=== PATIENT | female | born 1960 | race Caucasian/White ===

== ENCOUNTER → 2019-09-25 | Outpatient (CLI) | payer BC ==
[~2019-09-25] MED LIST: AMOX-358 PO; ASPI-999 PO; CEPH500C PO; CETI10TA17 PO; CHOL5000 PO; CODE118S4 PO; DICLOFENAC TOP; ESCI5TAB12 PO; FLUT9.9S NSEACH; HYDR-3455 PO; LACT1CAP65 PO; LORA-405 PO; LORA1TAB PO; NF-ESOM40C PO; POTA-51 PO; POTA10TA PO; PRAV20TA3 PO; RANI-613 PO; SUCR1TAB; TRIA1CAP4 PO
--- NOTE | 2019-09-25 09:17 | Diagnostic Imaging Report ---
INDICATION: Right hip pain. COMPARISON: None. FINDINGS: Two views of the right hip were obtained and show no fractures, dislocations, or other acute bony abnormalities. Moderate osteoarthritic changes are noted. Otherwise, joint spaces are maintained. The soft tissues appear unremarkable. No radiopaque foreign bodies are identified. IMPRESSION: 1. Moderate osteoarthritic changes of the right hip. 2. No evidence of acute fracture or dislocation. Dictated by: Dictated on workstation # [id number]
--- NOTE | 2019-09-25 09:21 | Diagnostic Imaging Report ---
INDICATION: Lower back pain. COMPARISON: None. FINDINGS: Frontal and lateral radiographic views of the lumbar spine were obtained. There is slight levoscoliotic deformity epicentered at L2. There is also slight grade 1 retrolisthesis at L2-L3 and L3-L4. There is no evidence of jumped facets. Vertebral body heights are maintained. There is no evidence of acute fracture. Moderate multilevel degenerative changes are noted and consistent with intervertebral disc height loss with sclerotic endplate change, disc osteophyte complex formation, and multilevel facet arthropathy. These changes appear greatest at L2-L3. IMPRESSION: 1. No acute fracture or dislocation in the lumbar spine. 2. Moderate multilevel degenerative changes. Dictated by: Dictated on workstation # [id number]
== END ==
LOC: RAD 08:27
PROVIDERS: ATTEND Nurse Practitioner Family
DX: M16.11 Unilateral primary osteoarthritis, right hip (principal); M47.816 Spondylosis without myelopathy or radiculopathy, lumbar region
CPT/HCPCS: 72100; 73502

== ENCOUNTER → 2020-03-22 | Outpatient (CLI) | payer BC ==
--- NOTE | 2020-03-22 10:07 | Diagnostic Imaging Report ---
PROCEDURE: MRI lumbar spine. TECHNIQUE: Multiplanar, multisequence MRI of the lumbar spine was performed without contrast. INDICATION: Chronic low back pain. No prior MRI studies are available for comparison. FINDINGS: Curvature and alignment of the lumbar spine is normal. Vertebral body heights are maintained. No geographic marrow lesion is seen apart from benign angiolipoma within the T12 vertebral body. There is generalized degenerative disc disease with variable disc space narrowing and desiccation, greatest at L1-L2 and L2-L3 levels. The conus is unremarkable at the L1 level. T12-L1: Central canal and neural foramina are widely patent. L1-L2: Mild endplate disc/osteophyte complex is noted but central canal remains widely patent. There is some narrowing of the lateral recesses bilaterally. There is also moderate right neural foraminal stenosis. L2-L3: Central canal is widely patent. There does appear to be moderate bilateral neural foraminal narrowing. L3-L4: Central canal is widely patent. There is [id number] narrowing of the left neural foramen and left lateral recess. L4-L5: Degenerative facet changes are noted with ligamentous thickening. Very mild trefoil configuration of the thecal sac is noted but AP dimensions remain within normal limits. Mild left neural foraminal narrowing is seen. L5-S1: Hypertrophic facet changes are noted. Central canal is widely patent. Neural foramina are patent. Paraspinous tissues are unremarkable. IMPRESSION: Multilevel lumbar spondylosis with multilevel lateral recess and neural foraminal narrowing described level by level above. No central canal stenosis or evidence of acute compression fracture is detected. Dictated by: Dictated on workstation # [id number]
== END ==
LOC: RAD 08:59
PROVIDERS: ATTEND Orthopaedic Surgery
DX: M47.816 Spondylosis without myelopathy or radiculopathy, lumbar region (principal); M48.061 Spinal stenosis, lumbar region without neurogenic claudication
CPT/HCPCS: 72148

== ENCOUNTER → 2020-11-07 | Outpatient (CLI) | payer BC ==
[~2020-11-07] MED LIST changes: -ESCI5TAB12 PO; +ESCI5TAB25 PO
--- NOTE | 2020-11-07 14:32 | Diagnostic Imaging Report ---
INDICATION: Routine screening. Comparison is made to prior mammogram 11/23/2019. 2-D and 3-D bilateral screening mammography was performed with CAD. Both breasts are heterogeneously dense, limiting the sensitivity of mammography. There are benign calcifications scattered throughout both breasts. There is a density in the medial right breast best seen on the CC view mid to posterior depth. Additional views recommended. No definite correlate is identified on the MLO view. Left breast is unremarkable. Axillae are unremarkable. IMPRESSION: BI-RADS 0 Right breast density. Additional views are recommended for further evaluation. ACR BI-RADS Category 0: Incomplete. (Needs additional imaging evaluation). Result letter will be mailed to the patient. Note: At least 10% of breast cancer is not imaged by mammography. Dictated by: Dictated on workstation # [id number]
== END ==
LOC: RAD 10:57
PROVIDERS: ATTEND Obstetrics & Gynecology
DX: Z12.31 Encounter for screening mammogram for malignant neoplasm of breast (principal); R92.8 Other abnormal and inconclusive findings on diagnostic imaging of breast
CPT/HCPCS: 77063; 77067

== ENCOUNTER → 2020-11-15 | Outpatient (CLI) | payer BC ==
--- NOTE | 2020-11-15 14:20 | Diagnostic Imaging Report ---
INDICATION: Right breast density. Patient presents for additional views. CORRELATION is made with screening study from 11/07/2020. Unilateral right 2-D and 3-D diagnostic mammography was performed. This included spot compression CC, rolled CC and 90 degree lateral views. There is a persistent nodular density in the medial right breast approximately 8 cm from the nipple. This is difficult to identify with clarity on the lateral view. Additional views with ultrasound are recommended. There are benign calcifications. IMPRESSION: BI-RADS 0 Persistent nodular density medial right breast 8 cm from the nipple. Further evaluation with ultrasound is recommended and will be performed today. ACR BI-RADS Category 0: Incomplete. (Needs additional imaging evaluation). Result letter will be mailed to the patient. Note: At least 10% of breast cancer is not imaged by mammography. Dictated by: Dictated on workstation # [id number]
--- NOTE | 2020-11-15 14:27 | Diagnostic Imaging Report ---
INDICATION: Right breast density. Correlation made with diagnostic mammogram earlier the same day as well as screening mammogram from 10/30/2020. Sonographic interrogation in the right breast was performed. There is a tiny simple appearing cyst at 2 o'clock location, 8 cm from the nipple measuring 4 mm x 3 mm. Likely accounts for the mammographic density. No internal vascularity is present. No solid masses are identified. IMPRESSION: BI-RADS Category 2 1. Tiny simple cyst 2 o'clock location right breast, 8 cm from the nipple. This likely accounts for the mammographic density. Patient may return to routine annual screening mammography. ACR BI-RADS Category 2: Benign findings. Result letter will be mailed to the patient. Note: At least 10% of breast cancer is not imaged by mammography. Dictated by: Dictated on workstation # [id number]
== END ==
LOC: RAD 13:45
PROVIDERS: ATTEND Obstetrics & Gynecology
DX: R92.2 Inconclusive mammogram (principal)
CPT/HCPCS: 76642; 77065; G0279

== ENCOUNTER → 2021-04-02 | Outpatient (CLI) | payer BC ==
[~2021-04-02] VITALS: Ht 172.7 cm; Wt 83.0 kg
[~2021-04-02] MED LIST changes: +DOCU-143 PO; +ESCI5TAB16 PO; -ESCI5TAB25 PO; +KRIL1CAP22 PO; +MULT-1136 PO
== END | disposition home or self-care (01) ==
LOC: PREOP 05:40
PROVIDERS: ATTEND Surgery
DX: Z01.818 Encounter for other preprocedural examination (principal)

== ENCOUNTER 2021-04-09 08:52 | Day surgery (SDC) | payer BC ==
[2021-04-09] VITALS (7 sets, daily range): BP systolic 100–118; BP diastolic 61–78
[~2021-04-09] VITALS: Ht 173 cm; Wt 83.0 kg
[2021-04-09] MEDS ORDERED: LACTATED RINGERS 1,000 ML IV ONE (09:05)
[2021-04-09] MEDS ORDERED: LACTATED RINGERS 1,000 ML IV STA (09:07)
[2021-04-09] MEDS ORDERED: LIDOCAINE JELLY 2% 6 ML SYRINGE MM PRN (09:15)
[2021-04-09] MEDS ORDERED: MIDAZOLAM 2 MG/2 ML (VERSED) VIAL ONE (09:56)
[2021-04-09] MEDS ORDERED: proPOfol 200 MG/20 ML (DIPRIVAN) VIAL IV ONE (09:56)
--- NOTE | 2021-04-09 10:01 | Progress Note-Pre Operative ---
Pre-Operative Progress Note H&P Reviewed The H&P was reviewed, patient examined and no changes noted. Date Seen by Provider: Apr 09, 2021 Time Seen by Provider: : Date H&P Reviewed: Apr 09, 2021 Time H&P Reviewed: : Pre-Operative Diagnosis: screening JOSE Santos MD Apr 09, 2021 10:01
--- NOTE | 2021-04-09 10:02 | Discharge Inst-Surgical ---
D/C Lap Instructions-[place] Follow Up High Fiber Diet 25g or more per day Avoid Alcohol, Caffeine, Spicy [place] and Acid foods. Drink 64 fluid oz or more of fluids per day. Symptoms to Report: Fever over 101 degree F, Nausea/Vomiting If any problems/questions: Contact your physician or go to Emergency Room JOSE ARNOLD MD Apr 09, 2021 10:02
[2021-04-09] MEDS ORDERED: ACETAMINOPHEN 325 MG TABLET PO PRN (10:15)
[2021-04-09] MEDS ORDERED: morphine INJ 10 MG/ML 1ML (SYR OR VIAL) IVP PRN ×2 (10:15)
[2021-04-09] MEDS ORDERED: ONDANSETRON 4 MG/2 ML (SDV) Z0FRAN IVP PRN (10:15)
[2021-04-09] MEDS ORDERED: HYDROcodone/APAP 5 MG/325 MG (LORTAB) TAB PO PRN (10:15)
--- NOTE | 2021-04-09 10:53 | Progress Note-Post Operative ---
Post-Operative Progess Note Surgeon (s)/Cloth Mercerizer Back Tender (s) Surgeon JOSE ARNOLD MD Cloth Mercerizer Back Tender: none Pre-Operative Diagnosis screening colo Post-Operative Diagnosis mild chronic stage 2 ext and int hemorrhoids, mild sigmoid diverticulosis, mild colitis hepatic flexure. Procedure & Operative Findings Date of Procedure 04/09/21 Procedure Performed/Findings colonoscopy with bx. Anesthesia Type mac Estimated Blood Loss Estimated blood loss (mL): minimal Specimens/Packing Specimens Removed hepatic flex JOSE ARNOLD MD Apr 09, 2021 10:53
--- NOTE | 2021-04-09 14:40 | Anesthesia-General Post-Op ---
MAC Patient Condition Mental Status/LOC: Same as Preop Cardiovascular: Satisfactory Nausea/Vomiting: Absent Respiratory: Satisfactory Pain: Controlled Complications: Absent Post Op Complications Complications None Follow Up Care/Instructions Patient Instructions None needed. Anesthesiology Discharge Order Discharge Order Patient is doing well, no complaints, stable vital signs, no apparent adverse anesthesia problems. No complications reported per nursing. JAZZ RANKIN CRNA Apr 09, 2021 14:40
--- NOTE | 2021-04-09 14:45 | OPERATIVE REPORT ---
DATE OF SERVICE: 04/09/2021 ATTENDING PRIMARY CARE PHYSICIAN: Andreea Dixon MD PREOPERATIVE DIAGNOSIS: Screening colonoscopy. POSTOPERATIVE DIAGNOSES: Mild chronic stage II external and internal hemorrhoids, mild sigmoid diverticulosis, mild colitis at the hepatic flexure. PROCEDURE: Colonoscopy with biopsy. SURGEON: Jose Arnold MD. ANESTHESIA: Monitored anesthesia care. ESTIMATED BLOOD LOSS: Minimal. FINDINGS: Mild chronic stage II external and internal hemorrhoids, mild sigmoid diverticulosis, mild colitis at the hepatic flexure. DISPOSITION: The patient tolerated the procedure well. INDICATIONS: The patient is a 60-year-old female in need of a screening colonoscopy. Her last colonoscopy was approximately 10 years ago and she states this to be normal. She reports no major issues with diarrhea nor constipation as well as no red blood per rectum nor any dark tarry stools. She also doed not report any family history of colon cancer. DESCRIPTION OF PROCEDURE: The patient was brought to the endoscopy suite, laid in the left lateral decubitus position. After adequate IV pain and sedative medications and monitored anesthesia care, digital rectal examination was performed. Mild chronic stage II external and internal hemorrhoids were identified, which were not actively edematous nor inflamed and no bleeding. Normal sphincter tone was felt and there were no palpable masses. The endoscope was then intubated and anus and rectum gently insufflated. The endoscope was then advanced through the valves of Urias of the rectum with no polyps or any neoplasms identified. Through the sigmoid colon, very mild diverticulosis was identified. There were no mucosal inflammatory changes to indicate any diverticulitis. The endoscope was then advanced to the remainder of the descending, transverse and ascending colon at the hepatic flexure, a small patch of inflammation was identified of the mucosa. A biopsy was taken of this area with forceps with visualization of good hemostasis. The endoscope was then advanced to the remainder of the ascending colon to the cecum, which was normal. The endoscope was then slowly withdrawn while taking a second look and suctioning of residual air with no additional findings. The patient tolerated the procedure well. We will recommend continued medical management with a high fiber diet with at least 25 grams of fiber daily as well as significant amounts of water to promote soft stools on a daily basis. If she remains asymptomatic, she does not need another colonoscopy for another 10 years. Job ID: [id number] DocumentID: [id number] Dictated Date: 04/09/2021 10:42:47 Rn Transport Date: 04/09/2021 14:45:12 Dictated By: JOSE ARNOLD MD MTDD
== END 2021-04-09 11:14 | disposition home or self-care (01) ==
LOC: ENDO 08:52
PROVIDERS: ATTEND Surgery
DX: Z12.11 Encounter for screening for malignant neoplasm of colon (principal); K64.1 Second degree hemorrhoids; K57.30 Diverticulosis of large intestine without perforation or abscess without bleeding; K52.9 Noninfective gastroenteritis and colitis, unspecified; K63.89 Other specified diseases of intestine; I10 Essential (primary) hypertension; E78.5 Hyperlipidemia, unspecified; Z79.899 Other long term (current) drug therapy

== ENCOUNTER → 2021-06-09 | Outpatient (CLI) | payer BC | LOC: LABNPT 06:53 | PROVIDERS: ATTEND Orthopaedic Surgery | DX: Z01.812 Encounter for preprocedural laboratory examination (principal); Z20.822 Contact with and (suspected) exposure to COVID-19 | CPT/HCPCS: 87635 ==

== ENCOUNTER → 2021-11-10 | Outpatient (CLI) | payer BC ==
--- NOTE | 2021-11-10 12:54 | Diagnostic Imaging Report ---
INDICATION: Routine screening. COMPARISON: 11/07/2020 and 11/23/2019. TECHNIQUE: 2D and 3D bilateral screening mammography was performed with CAD. FINDINGS: Both breasts are heterogeneously dense, limiting the sensitivity of mammography. The previously noted density in the medial right breast appears stable. There are scattered benign-appearing calcifications in both breasts. No new mass or malignant-appearing microcalcifications are seen. The axillae are unremarkable. IMPRESSION: No mammographic features suspicious for malignancy are identified. ACR BI-RADS Category 2: Benign findings. Result letter will be mailed to the patient. Note: At least 10% of breast cancer is not imaged by mammography. Dictated by: Dictated on workstation # [id number]
== END ==
LOC: RAD 08:42
PROVIDERS: ATTEND Nurse Practitioner Family
DX: Z12.31 Encounter for screening mammogram for malignant neoplasm of breast (principal)
CPT/HCPCS: 77063; 77067

== ENCOUNTER → 2022-07-02 | Outpatient (CLI) | payer BC ==
[~2022-07-02] MED LIST changes: -TRIA1CAP4 PO; +TRIA1CAP84 PO
--- NOTE | 2022-07-02 12:04 | Diagnostic Imaging Report ---
PROCEDURE: US Non-ob pelvis comp/trans. TECHNIQUE: Multiple realtime grayscale images were obtained of the pelvis in various projections endovaginally. Transabdominal imaging was also performed. INDICATION: Postmenopausal bleeding with vaginal discharge. FINDINGS: The uterus measures 7 x 4 x 4.2 cm. There is a hypoechoic area in the fundus of the uterus measuring 2.3 cm. The endometrial stripe measures 2 mm. There is a small amount of fluid in the endometrial canal. Right ovary is not visualized. No adnexal masses are seen. The left ovary measures 3.8 x 2.2 x 3.1 cm. There are multiple cysts, largest measuring 3.8 cm. There is no free fluid. IMPRESSION: 1. Myometrial fundal mass, likely representing fibroid, measuring 2.3 cm. 2. Small amount of fluid in the endometrial canal without evidence of endometrial hypertrophy or masses. 3. Cyst noted in the left ovary measuring approximately 3.8 cm. Right ovary is obscured by bowel gas. Dictated by: Dictated on workstation # [id number]
== END ==
LOC: RAD 10:08
PROVIDERS: ATTEND Nurse Practitioner Family
DX: N83.202 Unspecified ovarian cyst, left side (principal); N85.8 Other specified noninflammatory disorders of uterus
CPT/HCPCS: 76830; 76856

== ENCOUNTER 2022-09-10 05:36 | Outpatient (CLI) | payer BC ==
[~2022-09-10] VITALS: Ht 172.7 cm; Wt 83.0 kg
== END 2022-09-10 15:50 | disposition home or self-care (01) ==
LOC: PREOP 05:36
PROVIDERS: ATTEND Obstetrics & Gynecology
DX: Z01.818 Encounter for other preprocedural examination (principal)

== ENCOUNTER 2022-09-14 08:59 | Day surgery (SDC) | payer BC ==
[~2022-09-14] VITALS: Ht 172.7 cm; Wt 83.0 kg
[2022-09-14] VITALS (9 sets, daily range): BP systolic 109–134; BP diastolic 70–94
[2022-09-14] MEDS ORDERED: LACTATED RINGERS 1,000 ML IV PRN (09:30)
[2022-09-14 09:33] LABS: BASOPHILS % (AUTO) 1 % (0-10); EOSINOPHILS # (AUTO) 0.1 10^3/uL (0.0-0.3); EOSINOPHILS % (AUTO) 1 % (0-10); HEMATOCRIT 42 % (35-52); HEMOGLOBIN 14.2 g/dL (11.5-16.0); LYMPHOCYTES # (AUTO) 1.6 10^3/uL (1.0-4.0); LYMPHOCYTES % (AUTO) 29 % (12-44); MEAN CORPUSCULAR HEMOGLOBIN 30 pg (25-34); MEAN CORPUSCULAR HGB CONC 34 g/dL (32-36); MEAN CORPUSCULAR VOLUME 89 fL (80-99); MONOCYTES # (AUTO) 0.4 10^3/uL (0.0-1.0); MONOCYTES % (AUTO) 7 % (0-12); NEUTROPHILS # (AUTO) 3.5 10^3/uL (1.8-7.8); NEUTROPHILS % (AUTO) 62 % (42-75); PLATELET COUNT 227 10^3/uL (130-400); WHITE BLOOD COUNT 5.6 10^3/uL (4.3-11.0)
[2022-09-14] MEDS ORDERED: BUPIVACAINE 0.25% 30 ML (SENSORCAINE) VIAL ONE (09:38)
--- NOTE | 2022-09-14 09:41 | Progress Note-Pre Operative ---
Pre-Operative Progress Note Date of Available H&P: Sep 14, 2022 Date H&P Reviewed: Sep 14, 2022 Time H&P Reviewed: 09:40 History & Physical: H&P Reviewed, Patient Examed, No changes noted Pre-Operative Diagnosis: PMB, Fibroid uterus KATRIN LORD DO Sep 14, 2022 09:41
[2022-09-14] MEDS ORDERED: ONDANSETRON 4 MG/2 ML (SDV) Z0FRAN IVP PRN ×2 (09:45→11:15)
[2022-09-14] MEDS ORDERED: KETOROLAC 30 MG/ML VIAL IVP ONE (09:45)
[2022-09-14] MEDS ORDERED: D5 LR IV SOLUTION 1,000 ML IV SCH (09:45)
[2022-09-14] MEDS ORDERED: SEVOFLURANE (ULTANE) 15 ML INHAL SOLN ONE (10:23)
[2022-09-14] MEDS ORDERED: LIDOCAINE PF 2% 5 ML (XYLOCAINE) VIAL ONE (10:23)
[2022-09-14] MEDS ORDERED: proPOfol 200 MG/20 ML (DIPRIVAN) VIAL IV ONE (10:23)
[2022-09-14] MEDS ORDERED: fentaNYL INJ 100 MCG/2 ML AMP ONE (10:23)
[2022-09-14] MEDS ORDERED: ONDANSETRON 4 MG/2 ML (SDV) Z0FRAN ONE (10:23)
[2022-09-14] MEDS ORDERED: MIDAZOLAM 2 MG/2 ML (VERSED) VIAL ONE (10:24)
[2022-09-14] MEDS ORDERED: KETOROLAC 30 MG/ML VIAL ONE (11:00)
[2022-09-14] MEDS ORDERED: HYDROmorphone 2 MG/ML VIAL (DILAUDID) IV ONE (11:15)
--- NOTE | 2022-09-14 11:19 | Anesthesia-General Post-Op ---
General Patient Condition Mental Status/LOC: Same as Preop Cardiovascular: Satisfactory Nausea/Vomiting: Absent Respiratory: Satisfactory Pain: Controlled Complications: Absent Post Op Complications Complications None Follow Up Care/Instructions Patient Instructions None needed. Anesthesia/Patient Condition Patient Condition Patient is doing well, no complaints, stable vital signs, no apparent adverse anesthesia problems. No complications reported per nursing. D/C home per [facility] Criteria: Yes FABIOLA DONALDSON CRNA Sep 14, 2022 11:18
--- NOTE | 2022-09-14 21:09 | OPERATIVE REPORT ---
DATE OF SERVICE: 09/14/2022 PREOPERATIVE DIAGNOSIS: A 62-year-old female with postmenopausal bleeding. POSTOPERATIVE DIAGNOSIS: A 62-year-old female with postmenopausal bleeding. PROCEDURE: D and C with video hysteroscopy. SURGEON: Katrin Lord DO. ANESTHESIA: LMA general. ESTIMATED BLOOD LOSS: Minimal. URINE OUTPUT: 100 mL drained at the end of the procedure. FLUIDS: 800 mL lactated Ringer's solution. FINDINGS: Grossly normal-appearing external female genitalia. Grossly normal appearing cervical canal and endometrial cavity. SPECIMEN SENT: Endometrial curettings. INDICATIONS FOR PROCEDURE: This 62-year-old female is a patient in the psychiatric care in my office for a postmenopausal bleeding episode. She did not want to proceed with endometrial biopsy in the office. She continued to have some irregular spotting at times and wished to proceed with D and C after it was discussed with her versus an endometrial biopsy in the office. Risks of the procedure were discussed with the patient in detail including risk of bleeding, infection, damage to structures including but not limited to the uterus itself. After all of her questions were answered, consent was obtained in the preoperative area and the patient was taken to the operating room. REPORT IN DETAIL: Once in the operating room, anesthesia found to be adequate. She was placed in dorsal lithotomy position, prepped and draped in sterile fashion. Timeout was performed. A weighted speculum was inserted in the patient's vagina, right angle retractor was utilized. The cervix was grasped with clamps and using a long Allis clamp. We then performed paracervical block at 3 and 9 o'clock positions on the cervix. Care was taken to aspirate for injecting 5 mL of 0.25% Marcaine injected into each site. I then gently sounded the uterine cavity, was found to be 7 cm. I then gently dilated the cervix using Hanks dilators to allow placement of the hysteroscope into the endometrial cavity using normal saline as my visual medium. I am able to visualize the endometrial cavity, which appears to be grossly normal with no protrusions or abnormalities. Bilateral tubal ostia were noted as well and appear postmenopausal with some atrophy to the opening. The cervical canal appears grossly normal as well. At that point, I discontinued my hysteroscopic evaluation and proceed with curettage with a small endometrial curette. After further dilating the cervix to approximately 1 cm, I used the curette to gently collect an endometrial sample of the endometrial cavity. Once adequate sample was obtained, which is scant with tissue, I sent this as endometrial curettings. I then removed all the instruments from the patient's vagina. The patient tolerated the procedure well and was taken to the recovery area in stable condition. Lap and sponge counts were correct at the end of procedure, instrument counts were correct as well. Job ID: [id number] DocumentID: [id number] Dictated Date: 09/14/2022 11:35:25 Facilities Maintenance Supervisor Date: 09/14/2022 21:08:00 Dictated By: KATRIN LORD DO
== END 2022-09-14 12:50 | disposition home or self-care (01) ==
LOC: SDC 08:59
PROVIDERS: ATTEND Obstetrics & Gynecology
DX: N72 Inflammatory disease of cervix uteri (principal); N95.0 Postmenopausal bleeding; D25.9 Leiomyoma of uterus, unspecified
CPT/HCPCS: 36415; 85025; 86850; 86900; 86901; 87081

== ENCOUNTER → 2022-11-11 | Outpatient (CLI) | payer BC ==
--- NOTE | 2022-11-12 14:22 | Diagnostic Imaging Report ---
Indication: Routine screening. Comparison is made with prior mammogram from 11/10/2021 and 11/07/2020. 2-D and 3-D bilateral screening mammography was performed with CAD. CAD is utilized. The current study was also evaluated with a Computer Aided Detection (CAD) system. Both breasts are heterogeneously dense, limiting the sensitivity of mammography. There are benign calcifications scattered throughout both breasts. No dominant mass or malignant-appearing microcalcifications are seen. Axillae are unremarkable. IMPRESSION: BI-RADS Category 2 No mammographic features suspicious for malignancy are identified. ACR BI-RADS Category 2: Benign findings. Result letter will be mailed to the patient. Note: At least 10% of breast cancer is not imaged by mammography. Dictated by: Dictated on workstation # [id number]
== END ==
LOC: RAD 14:40
PROVIDERS: ATTEND Nurse Practitioner Family
DX: Z12.31 Encounter for screening mammogram for malignant neoplasm of breast (principal)
CPT/HCPCS: 77063; 77067

== ENCOUNTER → 2023-04-07 | Outpatient (CLI) | payer BC ==
[~2023-04-07] MED LIST changes: +POTA-330 PO; -POTA-51 PO
--- NOTE | 2023-04-07 09:13 | Diagnostic Imaging Report ---
PROCEDURE: CT chest without contrast. TECHNIQUE: Multiple contiguous axial images were obtained through the chest without the use of intravenous contrast. Auto Exposure Controls were utilized during the CT exam to meet ALARA standards for radiation dose reduction. INDICATION: Abnormal CT scan of the lungs. COMPARISON: None available FINDINGS: Calcified mediastinal lymph node is present. No pathologically enlarged lymph nodes within the chest. No aneurysmal dilatation of thoracic aorta. The heart is within normal limits in size. No pericardial effusion. No significant pleural effusion. Fat-containing diaphragmatic hernia noted posteriorly on the right. The trachea is patent. No pneumothorax. Minimal bibasilar scarring and/or atelectasis. Cholelithiasis. Hypodensity within the dome of the right hepatic lobe, likely related to a cyst. Only seen on the final few images of the axial images, there is potentially a 1.6 cm soft tissue mass associated with the tail of the pancreas. Scattered osseous degenerative changes without acute osseous abnormality. IMPRESSION: Only partially visualized on the axial images, there is suggestion of a potential 1.6 cm soft tissue mass within the tail of the pancreas. Recommend a CT of the abdomen with contrast for further evaluation. Alternatively, if prior imaging is available for comparison that would be beneficial. Cholelithiasis. Evidence of chronic granulomatous disease without acute abnormality within the chest. Dictated by: Dictated on workstation # [id number]
== END ==
LOC: RAD 08:23
PROVIDERS: ATTEND Family Medicine
DX: R91.8 Other nonspecific abnormal finding of lung field (principal); K80.20 Calculus of gallbladder without cholecystitis without obstruction; D71 Functional disorders of polymorphonuclear neutrophils; K86.9 Disease of pancreas, unspecified
CPT/HCPCS: 71250

== ENCOUNTER → 2023-04-23 | Outpatient (CLI) | payer BC ==
[~2023-04-23] MED LIST changes: +CATHETER FLUSH 10 ML SYR IV PRN; +HOLD METFORMIN - RECEIVED CONTRAST 20 ML VIAL IV SCH; +IOHEXOL 350 MG/ML 100 ML (OMNIPAQUE 350) VIAL IV ONE; +NS 100 ML (IVPB) BAG IV ONE; +POTA-185 PO; -POTA10TA PO
[2023-04-23 09:55] LABS: CREATININE SERUM 0.93 MG/DL (0.60-1.30)
--- NOTE | 2023-04-23 11:16 | Diagnostic Imaging Report ---
EXAMINATION: CT abdomen and pelvis with intravenous contrast. TECHNIQUE: Multiple contiguous axial images were obtained through the abdomen and pelvis after the uneventful administration of intravenous contrast. All CT scans use one or more of the following dose optimizing techniques: automated exposure control, MA and/or KvP adjustment based on patient size and exam type or iterative reconstruction. HISTORY: Pancreatic mass. COMPARISON: None available. FINDINGS: Limited views of the lower thorax show bibasilar atelectasis. There is a cyst in the dome of the liver. No suspicious liver lesion. There is no biliary ductal dilation. There are a few tiny stones in the gallbladder. No wall thickening or pericholecystic fluid. There is fatty atrophy of the pancreas. No pancreatic mass is seen. No pancreatic ductal dilation. There are a few islands of residual normal glandular tissue. There is a fat-containing Bochdalek hernia on the right. Spleen is normal. Adrenal glands are normal. The kidneys are normal. There is no hydronephrosis. Urinary bladder is normal. There is a 3.2 x 2.3 cm left adnexal lesion which is partially obscured by streak artifact. Bowel is normal in caliber without obstruction or inflammation. No free fluid or air. No abdominal or pelvic lymphadenopathy. Aorta is normal in caliber without aneurysm. There are no suspicious osseus lesions. There are bilateral hip arthroplasties. IMPRESSION: 1. Fatty atrophy of the pancreas with a few islands of residual glandular tissue but no suspicious lesions. 2. Indeterminate left adnexal lesion. Pelvic sonogram recommended. Dictated by: Dictated on workstation # [id number]
== END ==
LOC: RAD 09:14
PROVIDERS: ATTEND Family Medicine
DX: K86.89 Other specified diseases of pancreas (principal)
CPT/HCPCS: 36415; 74177; 82565; 84520

== ENCOUNTER → 2023-05-07 | Outpatient (CLI) | payer BC ==
[~2023-05-07] MED LIST changes: -CATHETER FLUSH 10 ML SYR IV PRN; -HOLD METFORMIN - RECEIVED CONTRAST 20 ML VIAL IV SCH; -IOHEXOL 350 MG/ML 100 ML (OMNIPAQUE 350) VIAL IV ONE; -NS 100 ML (IVPB) BAG IV ONE
--- NOTE | 2023-05-07 16:57 | Diagnostic Imaging Report ---
PROCEDURE: Pelvic complete, transabdominal and transvaginal sonogram. Limited pelvic doppler. TECHNIQUE: Multiple real-time grayscale images were obtained of the pelvis in various projections transabdominally and transvaginally. Limited pelvic duplex images were obtained. HISTORY: Left adnexal mass COMPARISON: 04/23/2023 FINDINGS: Uterus: The uterus is anteverted and measures 6.9 x 3.0 x 4.1 cm. There is an intramural or subserosal uterine fibroid measuring up to 1.8 cm. Endometrium: The endometrium is normal in thickness and measures 0.1 cm. There is no fluid within the endometrial cavity. Adnexa: There is a multilocular anechoic cyst with some internal debris within the left ovary measuring up to 3.2 cm. The right ovary is unremarkable. The right ovary measures 1.5 x 0.6 x 1.0 cm and the left ovary measures 3.2 x 2.9 x 4.2 cm. Duplex images reveal normal vascular flow to both ovaries. Other: There is no free fluid within the pelvis. IMPRESSION: 1. A 3.2 cm mildly complex left adnexal cystic lesion. This could represent a hemorrhagic cyst. Consider ultrasound followup in 6-12 weeks. 2. A 1.8 cm intramural or subserosal uterine fibroid. Dictated by: Dictated on workstation # [id number]
== END ==
LOC: RAD 14:52
PROVIDERS: ATTEND Nurse Practitioner
DX: N94.89 Other specified conditions associated with female genital organs and menstrual cycle (principal)
CPT/HCPCS: 76830; 76856

== ENCOUNTER → 2023-08-24 | Outpatient (CLI) | payer BC ==
[~2023-08-24] VITALS: Ht 172.7 cm; Wt 87.7 kg
[~2023-08-24] MED LIST changes: +ANTACID SUSPENSION 30 ML UDC PO PRN; +BENZOCAINE LOZENGES 1 EACH MM PRN; +DOCUSATE SODIUM 100 MG CAPSULE PO PRN; +HYDROcodone/ACETAMINOPHEN 7.5 MG/325 MG TABLET PO PRN; +IBUPROFEN 600 MG TABLET PO PRN; +KETOROLAC INJ 30 MG/ML VIAL IVP PRN; +LACTATED RINGERS 1,000 ML 1,000 ML IV SCH; +ONDANSETRON INJECTION 4 MG/2 ML (SDV) IV PRN; +SIMETHICONE 80 MG CHEWABLE TABLET PO PRN; +ZOLPIDEM 5 MG (AMBIEN) TAB PO PRN
--- NOTE | 2023-08-24 07:15 | Progress Note-Pre Operative ---
Pre-Operative Progress Note Date of Available H&P: Aug 24, 2023 Date H&P Reviewed: Aug 24, 2023 Time H&P Reviewed: 06:45 History & Physical: H&P Reviewed, Patient Examed, No changes noted Pre-Operative Diagnosis: Pelvic mass, Pelvic pain, AUB KATRIN LORD DO Aug 24, 2023 07:15
== END | disposition home or self-care (01) ==
LOC: PREOP 05:30
PROVIDERS: ATTEND Obstetrics & Gynecology
DX: Z01.818 Encounter for other preprocedural examination (principal)

== ENCOUNTER 2023-08-31 05:59 | Day surgery (SDC) | payer BC ==
[2023-08-31] VITALS (10 sets, daily range): BP systolic 104–136; BP diastolic 62–86
[~2023-08-31] VITALS: Ht 172.7 cm; Wt 87.7 kg
[~2023-08-31 05:59] MED LIST changes: -ANTACID SUSPENSION 30 ML UDC PO PRN; -BENZOCAINE LOZENGES 1 EACH MM PRN; -DOCUSATE SODIUM 100 MG CAPSULE PO PRN; -HYDROcodone/ACETAMINOPHEN 7.5 MG/325 MG TABLET PO PRN; -IBUPROFEN 600 MG TABLET PO PRN; -KETOROLAC INJ 30 MG/ML VIAL IVP PRN; -LACTATED RINGERS 1,000 ML 1,000 ML IV SCH; -ONDANSETRON INJECTION 4 MG/2 ML (SDV) IV PRN; -SIMETHICONE 80 MG CHEWABLE TABLET PO PRN; -ZOLPIDEM 5 MG (AMBIEN) TAB PO PRN
[2023-08-31] MEDS ORDERED: ceFAZolin INJECTION 2,000 MG in NS (IVPB) 50 ML 50 ML IV ONE (06:15)
[2023-08-31] MEDS ORDERED: metroNIDAZOLE 500MG/100ML IVPB 100 ML IV ONE (06:15)
[2023-08-31] MEDS ORDERED: UBID50TA3 PO (06:18)
[2023-08-31] MEDS ORDERED: BUPIVACAINE 0.25% 30 ML VIAL ONE (06:26)
[2023-08-31] MEDS: LACTATED RINGERS 1,000 ML 1,000 ML IV PRN ×3 (06:30→08:25)
[2023-08-31 06:54] LABS: BASOPHILS % (AUTO) 1 % (0-10); EOSINOPHILS # (AUTO) 0.1 10^3/uL (0.0-0.3); EOSINOPHILS % (AUTO) 2 % (0-10); HEMATOCRIT 39 % (35-52); HEMOGLOBIN 13.3 g/dL (11.5-16.0); LYMPHOCYTES # (AUTO) 1.8 10^3/uL (1.0-4.0); LYMPHOCYTES % (AUTO) 26 % (12-44); MEAN CORPUSCULAR HEMOGLOBIN 30 pg (25-34); MEAN CORPUSCULAR HGB CONC 34 g/dL (32-36); MEAN CORPUSCULAR VOLUME 90 fL (80-99); MEAN PLATELET VOLUME 10.4 fL (9.0-12.2); MONOCYTES # (AUTO) 0.6 10^3/uL (0.0-1.0); MONOCYTES % (AUTO) 8 % (0-12); NEUTROPHILS # (AUTO) 4.5 10^3/uL (1.8-7.8); NEUTROPHILS % (AUTO) 64 % (42-75); PLATELET COUNT 234 10^3/uL (130-400)
[2023-08-31] MEDS ORDERED: proPOfol INJECTION 200 MG/20 ML VIAL IV ONE (07:02)
[2023-08-31] MEDS ORDERED: fentaNYL INJECTION 100 MCG/2 ML VIAL ONE (07:02)
[2023-08-31] MEDS ORDERED: LIDOCAINE PF 2% 5 ML VIAL ONE (07:02)
[2023-08-31] MEDS ORDERED: ROCURONIUM 50 MG/5 ML VIAL IV ONE (07:02)
[2023-08-31] MEDS ORDERED: MIDAZOLAM INJ 2 MG/2 ML VIAL ONE (07:02)
--- NOTE | 2023-08-31 07:09 | Progress Note-Pre Operative ---
Pre-Operative Progress Note Date of Available H&P: Aug 31, 2023 Date H&P Reviewed: Aug 31, 2023 Time H&P Reviewed: 07:05 History & Physical: H&P Reviewed, Patient Examed, No changes noted Pre-Operative Diagnosis: CPP, Fibroid uterus, Adnexal mass KATRIN LORD DO Aug 31, 2023 07:09
--- NOTE | 2023-08-31 07:14 | Discharge Inst-Women's Service ---
Discharge Inst-Women's Serv Depart Medication/Instructions New, Converted or Re-Newed RX: Transmitted to Pharmacy Problems Reviewed?: Yes Consults/Follow Up Additional Follow Up: Yes Orders/Referrals Dr. Lord in 7-10 days and in 8 weeks Activity Activity: Activity as Tolerated Driving Instructions: No Driving for 1 Week NO SMOKING: NO SMOKING Nothing Inside Vagina: No Douching, No [place], No Tampons Diet Discharge Diet: No Restrictions Symptoms to Report to : Bleeding Excessive, Pain Increased, Fever Over 101 Degrees F, Vaginal Bleeding Increase, Questions/Concerns For Any Problems or Questions: Contact Your Physician KATRIN LORD DO Aug 31, 2023 07:14
[2023-08-31] MEDS ORDERED: ZOLPIDEM 5 MG (AMBIEN) TAB PO PRN (07:15)
[2023-08-31] MEDS ORDERED: DOCU100C37 PO (07:15)
[2023-08-31] MEDS ORDERED: HYDR-3817 PO (07:15)
[2023-08-31] MEDS ORDERED: LACTATED RINGERS 1,000 ML 1,000 ML IV SCH (07:15)
[2023-08-31] MEDS ORDERED: SIME80TA16 PO (07:15)
[2023-08-31] MEDS ORDERED: BENZOCAINE LOZENGES 1 EACH MM PRN (07:15)
[2023-08-31] MEDS ORDERED: IBUP-1773 PO (07:15)
[2023-08-31] MEDS ORDERED: ANTACID SUSPENSION 30 ML UDC PO PRN (07:15)
[2023-08-31] MEDS ORDERED: DOCUSATE SODIUM 100 MG CAPSULE PO PRN (07:15)
[2023-08-31] MEDS ORDERED: SIMETHICONE 80 MG CHEWABLE TABLET PO PRN (07:15)
[2023-08-31] MEDS ORDERED: ONDANSETRON INJECTION 4 MG/2 ML (SDV) IV PRN (07:15)
[2023-08-31] MEDS ORDERED: HYDROcodone/ACETAMINOPHEN 7.5 MG/325 MG TABLET PO PRN (07:15)
[2023-08-31] MEDS ORDERED: BUPIVACAINE 0.25% 30 ML VIAL INJ ONE (07:44)
[2023-08-31] MEDS ORDERED: NEOSTIGMINE 1 MG/1ML 10 ML VIAL ONE (08:16)
[2023-08-31] MEDS ORDERED: GLYCOPYRROLATE INJ 0.2 MG/ML 2 ML VIAL ONE (08:16)
[2023-08-31] MEDS ORDERED: HYDROmorphone INJECTION 2 MG/ML VIAL ONE (08:24)
[2023-08-31] MEDS ORDERED: SEVOFLURANE (ULTANE) 15 ML INHAL SOLN ONE (08:26)
[2023-08-31] MEDS ORDERED: HYDROmorphone INJECTION 2 MG/ML VIAL IV ONE (08:45)
[2023-08-31] MEDS ORDERED: ONDANSETRON INJECTION 4 MG/2 ML (SDV) IVP PRN (08:45)
[2023-08-31] MEDS ORDERED: KETOROLAC INJ 30 MG/ML VIAL ONE (08:56)
[2023-08-31] MEDS: KETOROLAC INJ 30 MG/ML VIAL IVP PRN ×2 (08:57→15:20)
--- NOTE | 2023-08-31 15:26 | OPERATIVE REPORT ---
DATE OF SERVICE: 08/31/2023 PREOPERATIVE DIAGNOSES: 1. A 63-year-old female with fibroid uterus. 2. Chronic pelvic pain. 3. Left ovarian complex cyst. POSTOPERATIVE DIAGNOSES: 1. A 63-year-old female with fibroid uterus. 2. Chronic pelvic pain. 3. Left ovarian complex cyst. PROCEDURE: Robotic-assisted total laparoscopic hysterectomy, bilateral salpingo-oophorectomy. SURGEON: Shayne Lord DO. SOCIAL SCIENCE INSTRUCTOR: Danette Trujillo DNP was necessary for manipulation and retraction throughout the procedure. ANESTHESIA: General endotracheal. ESTIMATED BLOOD LOSS: Minimal. URINE OUTPUT: 200 mL clear at the end of the procedure. FLUIDS: Two liters lactated Ringer's solution. FINDINGS: Slightly bulky and hyperemic appearing uterus. Bilateral normal-appearing fallopian tubes. Right normal-appearing ovary that is postmenopausal in appearance. Left ovary is multicystic appearing enlarged approximately 2-3 cm, otherwise no excrescences or abnormalities noted of the left ovary. SPECIMEN SENT: Uterus, bilateral fallopian tubes and ovaries. INDICATIONS FOR PROCEDURE: This 63-year-old female patient sought care in my office. She had been seen previously for finding of ovarian multicystic mass that was stable. She also had a known uterine fibroid. She did have chronic pelvic pain that seems to be getting more and more frequent. Due to this as well as the patient's concern with a strong family history of gynecologic malignancy, the patient wished to proceed with hysterectomy. Risks of the procedure were discussed with the patient in detail including risk of bleeding, infection, damage structures including but not limited to bowel, bladder, ureter, kidneys, possible need for reoperation, postoperative complications that may recur, recovery timeframe, risk from anesthesia and even . Everything was discussed with the patient in detail and she was agreeable to proceed. Consent was obtained. The patient was taken to the operating room. OPERATIVE DESCRIPTION IN DETAIL: Once in the operating room, anesthesia was administered. She was placed in the dorsal lithotomy position, prepped and draped in normal sterile fashion. A timeout was performed. A Moore catheter was placed using sterile technique. A weighted speculum inserted to the patient's vagina. Right angle retractor was used to visualize cervix, which was grasped at 12 o'clock position using an 0 Vicryl suture to the anterior lip of the cervix. Once the sutures through the anterior lip of the cervix using my retraction, I gently sound the uterine cavity depth was found to be 8 cm. I placed a RAEGAN uterine manipulator tip of 8 cm depth into the uterus deploying the balloon and the uterus and advanced 3.5 cm colpotomy ring around the vaginal fornix, after which bimanual manipulation is appreciated on examination using the Raegan device. I then removed all the other instruments from the patient's vagina, performed change of gloves and my attention to the abdomen where a subcostally at the midclavicular line on the left side and introduced the Veress needle through the incision until intraperitoneal placement was confirmed using a saline drop test and opening pressure of 5 mmHg was noted. I proceeded with CO2 insufflation to maximum pressure of 15 mmHg, at which point I make an 8 mm infraumbilical incision with a knife and direct a da Radha laparoscopic 8 mm trocar through the incision until intraperitoneal placement was confirmed using da Radha laparoscope. There was no evidence of damage from entry site. Brief scan of the upper abdominal anatomy appears to be grossly normal with some filmy bleeding in the upper abdomen. The Veress was removed. There is no active bleeding noted from the very site. I then had the patient was placed in steep Trendelenburg, where I am able to visualize all my pelvic anatomy as defined in my findings above. I placed 2 lateral trocars at this point. These were both 8 mm trocars, approximately 8 cm lateral to my infraumbilical trocar. Once these were both in place under direct visualization laparoscope, I bring in the da Radha robot and docked in appropriate fashion, placing the SynchroSeal device in left hand and monopolar tyson in the right hand. I performed the following dissection bilaterally. Starting at the infundibulopelvic ligament, I sealed and transected using a SynchroSeal device. I then grasped the round ligament, which I sealed and transected using SynchroSeal device. I then able to grasp the entire broad ligament, which I sealed and transected using SynchroSeal device. I do this all the way down to the level of the lower uterine segment, at which point I the anterior and posterior leaflets of the broad ligament. Anterior lip was taken down to the anterior vaginal fornix. The posterior leaflet was taken down to the posterior vaginal fornix. This allows me to skeletonize the uterine vessels laterally, which I sealed and transected using the SynchroSeal device. I then created a colpotomy at 12 o'clock position using monopolar tyson and take this circumferentially around the vaginal fornix amputating the cervix away from the vagina. The entire specimen was then removed through the vagina. I then closed the vaginal cuff using 2-0 V-Loc in a running fashion, after which no active bleeding noted from any of my dissection planes. I then undocked da Radha robot and proceeded with remainder of the case laparoscopically. I copiously irrigated the pelvis using normal saline. Once again, there was no active bleeding noted from any of my dissection planes. I placed Surgiflo hemostatic agent over all my planes of dissection. I then had the patient taken out of steep Trendelenburg, while I removed the lateral trocars under direct visualization of the laparoscope. The infraumbilical trocars left in place to release the remainder of insufflation and to introduced 10 mL of 0.25% Marcaine in peritoneal cavity for postoperative pain management, then removed this trocar as well. The skin reapproximated using 4-0 Monocryl and interrupted subcuticular stitches. Dermabond was applied. Incision and Band-Aids were placed over the incisions as well. Moore catheter was left in place. The patient tolerated the procedure well and sent to recovery area in stable condition. Lap and sponge counts were correct at the end of the procedure. Instrument counts correct as well. Two grams of Ancef and 500 mg of Flagyl were given preoperatively for infection prophylaxis. Job ID: [id number] DocumentID: [id number] Dictated Date: 08/31/2023 08:44:03 Shot Packer Date: 08/31/2023 15:24:00 Dictated By: SHAYNE LORD DO
--- NOTE | 2023-09-01 17:04 | Anesthesia-General Post-Op ---
General Patient Condition Mental Status/LOC: Same as Preop Cardiovascular: Satisfactory Nausea/Vomiting: Absent Respiratory: Satisfactory Pain: Controlled Complications: Absent Post Op Complications Complications None Follow Up Care/Instructions Patient Instructions None needed. Anesthesia/Patient Condition Patient Condition Patient is doing well, no complaints, stable vital signs, no apparent adverse anesthesia problems. No complications reported per nursing. ALEX COELLO CRNA Sep 01, 2023 17:04
== END 2023-08-31 17:17 | disposition home or self-care (01) ==
LOC: SDC 05:59 → WS 09:30 → SDC 17:17
PROVIDERS: ATTEND Obstetrics & Gynecology
DX: D25.1 Intramural leiomyoma of uterus (principal); N83.8 Other noninflammatory disorders of ovary, fallopian tube and broad ligament; D27.1 Benign neoplasm of left ovary; G89.29 Other chronic pain
CPT/HCPCS: 36415; 85025; 86850; 86900; 86901; 87081